=== PATIENT | male | born 1970 | race African-American/Black ===

== ENCOUNTER 2020-04-04 12:47 | Emergency (ER) | payer OTHER, SELFPAY ==
[2020-04-04 12:51] VITALS: BP 193/91; PULSE 82; RESP 19; TEMP 37.2; O2SAT 100; BMI 38.9
--- NOTE | 2020-04-04 12:59 | EKG12_ITS ---
Test Reason : HTN Blood Pressure : / mmHG Vent. Rate : 069 BPM Atrial Rate : 069 BPM P-R Int : 160 ms QRS Dur : 106 ms QT Int : 410 ms P-R-T Axes : 064 -03 050 degrees QTc Int : 439 ms Normal sinus rhythm Normal ECG Confirmed by LANE THOMAS, CHANDRIKA ([id number]), photography editor YVONNE MUÑOZ ([id number] on 04/06/2020 2:33:35 PM Referred By: BB Confirmed By:CHANDRIKA SHERMAN MD
--- NOTE | 2020-04-04 13:15 | ED.DCSUM_ITS ---
History of Present Illness Chief Complaint: Hypertension Informant: Patient Onset: Today Context: Gradual Onset Timing: Continuous Quality: Tremulousness Location: All over Current Severity: Mild Maximum Severity: Moderate Worsened by: When he gets reflux Relieved by: Nothing specific today Associated Symptoms: Muscle spasms Narrative: Patient states he has hypoaldosteronism, treated with Spironolactone and lisinopril, he is treated by a user support analyst in [place] where he lives, but he works here. He has had hypokalemia several times in the past, takes potassium replacement pills that he has been compliant with without recent vomiting or o ther illness, and he feels like his potassium is low again. He states he felt very tremulous earlier which is the symptom that he usually gets. Also when he takes his potassium pills, which he did this morning, he sometimes gets reflux and when he gets that oftentimes his blood pressure is elevated as it is today. He denies any focal neurologic symptoms. - Past Medical History (1) Hypoaldosteronism Status: Chronic (2) GERD (gastroesophageal reflux disease) Status: Chronic Past Medical History - Allergies and Home Meds Allergies/Adverse Reactions: Allergies guaifenesin Allergy (Verified 04/04/20 12:54) Hives Smoking Status: Never smoker Review of Systems General: Reports: Malaise - and muscle spasms. Denies: Chills, Fever, Sweats Eyes: Denies: Visual changes - bilaterally, Diplopia ENT: Denies: Rhinorrhea, Sore throat Cardiovascular: Denies: Chest pain, Palpitations Respiratory: Denies: Dyspnea, Cough, Dyspnea on exertion Gastrointestinal: Denies: Abdominal pain, Nausea, Vomiting, Diarrhea, Melena, Hematochezia Genitourinary: Denies: Dysuria, Hematuria, Frequency Musculoskeletal: Denies: Back pain, Swelling, Extremity Pain Skin: Denies: Rash, Wounds Neurological: Denies: Headache, Weakness, Numbness Physical Exam Vital Signs/Narrative: Vital Signs Temp Pulse Resp BP Pulse Ox 04/04/20 12:51 98.9 F 82 19 H 193/91 H 100 Inital Vital Signs reviewed: Yes General: Well nourished, Well developed, No Acute Distress Head: Normocephalic, Atraumatic Eyes: Perrl, EOMI ENT: Moist mucous membranes, No rhinorrhea Neck: Supple, Nontender Cardiovascular: Regular rate, Regular rhythm, No murmurs Respiratory: No distress, CTA bilaterally, Chest nontender Abdomen: Soft, Nontender, Nondistended, Normal bowel sounds Back: Nontender, Normal Inspection Extremities: Nontender, No edema Skin: Normal color, No rash Neurological: Alert, Oriented x3, Cranial nerves II-XII grossly intact, Normal Strength, Normal Sensation Psychological: Normal affect, Normal Mood Diagnostic/Tx/Re-eval Laboratory Results 04/04/20 04/04/20 12:55 12:55 WBC 4.3 L RBC 4.54 L Hgb 13.1 Hct 39.0 L MCV 85.9 MCH 28.9 MCHC 33.6 RDW Std Deviation 37.4 RDW Coeff of Shen 11.9 Plt Count 146 L MPV 12.3 H Immature Gran % (Auto) 0.200 Neut % (Auto) 54.0 Lymph % (Auto) 34.3 [place] % (Auto) 6.8 Eos % (Auto) 4.2 Baso % (Auto) 0.5 Absolute Neuts (auto) 2.3 Absolute Lymphs (auto) 1.47 Nucleated RBC % 0 Sodium 138 Potassium 4.1 Chloride 103 Carbon Dioxide 30.0 Anion Gap 5 BUN 17 Creatinine 1.42 H Estim Creat Clear Calc 62.24 Est GFR (MDRD) Af Amer 68 Est GFR (MDRD) Non-Af 56 L BUN/Creatinine Ratio 12.0 Glucose 147 H Calcium 9.2 - Rhythm Strip Rhythm Strip: Sinus Rhythm Rate: 69 Ectopy: None - EKG Initial EKG Interpretation: Sinus Rhythm, No Acute Injury Pattern - normal EKG - Medical Decision Making Patient's blood pressure was very high initially, but with observation it came down. During my exam it was 167 systolic, now it is 132/70. He feels back to normal. It is conceivable that he had a spontaneous elevation of blood pressure that caused all this, it is also possible that he had some other metabolic disturbance such as hypoglycemia that created muscle spasms, and the spasming in addition to the discomfort caused a spike in his blood pressure secondarily, or even the appearance of elevated blood pressure that may not have even been actually into the 190s due to the muscle spasms and problems with the cuff over top of muscle spasms. Regardless, I think he is stable to be discharged home at this time especially since his potassium was 4.1 in normal range. Patient is comfortable with that plan will follow-up with his doctor. ED Disposition - Plan for ED Patient: Disposition: Home or Assisted Living Diagnosis: Single episode of hypertension, Muscle spasm Instructions: ED Hypertension Established Referrals: doctor, your kidney [Other] (within the next week)
[2020-04-04 13:25] LABS: Absolute Lymphocyte Count 1.47 X10^3/uL (0.83-4.51); Absolute Neutrophil Count 2.3 X10^3/uL (2.0-7.7); Basophil# 0.02 X10^3/uL; Basophil% 0.5 % (0-1); Eosinophil# 0.18 X10^3/uL; Eosinophils% 4.2 % (0-5); Hemoglobin 13.1 g/dL (13.0-16.5); Lymphocyte # 1.47 X10^3/ul (4.0); Lymphocyte % 34.3 % (19-41); Mean Corp Hgb Conc 33.6 g/dL (32-36); Mean Corpuscular Hgb 28.9 pg (27.0-32.0); Mean Corpuscular Volume 85.9 fL (80-94); Mean Platelet Vol. 12.3 fl (6.2-12.0); Monocyte# 0.29 X10^3/uL; Monocyte% 6.8 % (0-10); NRBC Flagged by Analyzer 0 % (0-5); Neutrophil # 2.32 X10^3/uL (2.7-7.7); Platelet Count 146 K/mm3 (150-450); RBC Distribution Width CV 11.9 % (11.6-14.6); RBC Distribution Width SD 37.4 fl (35.1-43.9); Red Blood Count 4.54 M/mm3 (4.6-6.2); White Blood Count 4.3 K/mm3 (4.4-11.0)
[2020-04-04 13:31] LABS: Anion Gap 5 (5-15); BUN 17 mg/dL (7-18); Calcium,Total 9.2 mg/dL (8.5-10.1); Chloride 103 mmol/L (98-107); Creatinine, Serum 1.42 mg/dL (0.70-1.30); EST Glomerular Filtration Rate 56 mL/min (>60); Est Glom Filt Rate - Afr Amer 68 mL/min (>60); Estimated Creatinine Clearance 62.24 ml/min; Glucose 147 mg/dL (74-106); Potassium 4.1 mmol/L (3.5-5.1); Sodium Level 138 mmol/L (136-145)
[2020-04-04 13:43] VITALS: BP 153/80; PULSE 69; RESP 18; O2SAT 100
[2020-04-04 14:05] VITALS: BP 149/72; PULSE 58; RESP 13; O2SAT 100
[2020-04-04 14:23] VITALS: BP 147/74; PULSE 63; RESP 18
== END 2020-04-04 14:25 | disposition home or self-care (01) ==
LOC: ED 14:05
PROVIDERS: Emergency Provider Emergency Medicine
DX: M62.838 Other muscle spasm (principal); I10 Essential (primary) hypertension; E27.40 Unspecified adrenocortical insufficiency; K21.9 Gastro-esophageal reflux disease without esophagitis; Z79.82 Long term (current) use of aspirin; Z79.899 Other long term (current) drug therapy
CPT/HCPCS: 80048; 85025; 93005; 99285; A4216